=== PATIENT | female | born 1960 | race American Indian/Alaskan Native ===

== ENCOUNTER 2017-10-27 16:43 | Emergency (ER) | payer OTHER ==
--- NOTE | 2017-10-27 21:01 | Emergency Department Report ---
HPI - General Chief Complaint: Upper Respiratory Infection Time Seen by Provider: 10/27/17 20:52 - HPI HPI: Patient reports that she has cold symptoms. Denies any fever or chills. She said this is been ongoing. She also says she has pituitary tumor and she had craniotomy in the past and patient says that she is on hydrocortisone which her quantitative analyst is Dr. Prosper Munoz called into [facility] for her but they are on back order and unable to fill prescription. She says she has not taken this for about 5 days now. She has a history of endometriosis. Patient also had a history of blood clot in 2007 and she is not on any blood thinner but was on it in the past. Denies any swelling to her legs. She denies chest pain but reports shortness of breath. Denies any recent long distance for 3 hours or greater by car or airplane. Denies any hormonal therapy. Denies any nausea or vomiting. Patient said that she didn't have to get [facility] to give her the prescription back so she can go to another pharmacy to get medication filled. Patient does have a primary care physician. She says she's been taking over-the -counter cough and cold without any success. Patient denies any pain at present. 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 Endometriosis - Surgical History Past Surgical History?: Yes Additional Surgical History: crainotomy, brain tumor, endometrosis - Family History Family history: hypertension - Social History Smoking Status: Never Smoker Substance Use Type: None - Medications Home Medications: Home Medications Medication Instructions Recorded Confirmed Last Taken Type ALBUTEROL Inhaler [ProAir HFA 2 puff IH QID PRN #1 inhalation 10/28/17 Unknown Rx Inhaler] Amoxicillin/K Clav Tab [Augmentin 1 tab PO Q12HR 10 Days #20 tab 10/28/17 Unknown Rx 875 mg] Cetirizine HCl [ZyrTEC] 10 mg PO QDAY #10 capsule 10/28/17 Unknown Rx Prednisone [predniSONE 5 mg (6-Day 5 mg PO .TAPER 6 Days #1 tab.ds.pk 10/28/17 Unknown Rx Pack, 21 Tabs)] guaiFENesin/CODEINE [Robitussin AC] 10 ml PO Q12H PRN #100 ml 10/28/17 Unknown Rx ED Review of Systems ROS: Stated complaint: FLU LIKE SYMPTOMS Other details as noted in HPI Comment: All other systems reviewed and negative Constitutional: no symptoms reported Eyes: denies: eye pain, eye discharge, vision change ENT: congestion. denies: ear pain, throat pain, hearing loss, epistaxis Respiratory: cough, shortness of breath, SOB with exertion, wheezing. denies: orthopnea, SOB at rest, stridor Cardiovascular: denies: chest pain, palpitations, dyspnea on exertion, edema, syncope, paroxysmal nocturnal dyspnea Endocrine: denies: excessive sweating, flushing, intolerance to cold, intolerance to heat, increased hunger, increased thirst, increased urine, unexplained weight gain, unexplained weight loss Gastrointestinal: denies: abdominal pain, nausea, vomiting, diarrhea, constipation, hematemesis, melena, hematochezia Genitourinary: denies: dysuria, frequency, hematuria, discharge Musculoskeletal: denies: back pain, joint swelling, arthralgia, myalgia Skin: denies: rash Neurological: denies: headache, weakness, numbness, paresthesias, confusion, abnormal gait, vertigo Physical Exam - Physical Exam Vital Signs: Vital Signs 10/27/17 19:12 Temperature 97.6 F Pulse Rate 78 Blood Pressure 117/75 Vital Signs 10/27/17 10/27/17 10/27/17 19:12 21:04 22:02 Temperature 97.6 F 98.0 F Pulse Rate 78 83 86 Respiratory 21 16 Rate Blood Pressure 117/75 Blood Pressure 131/74 [Left] O2 Sat by Pulse 98 95 Oximetry General: This is a 57-year-old female well-nourished well-developed and in no acute distress. Physical Exam: Head: Normocephalic, atraumatic, no abrasion, no bruising and no contusion. Eyes: Biateral pupils equal and reactive to light, bilateral EOM intact.. Bilateral conjunctival and sclera without injection, normal accommodation. No nystagmus Mouth: Moist, no pharyngeal exudate or erythema. No peritonsillar abscesses. Uvula is midline and oral airways patent. Ears: Bilateral TM congested without erythema. Bilateral EAC without any redness swelling or drainage. No mastoid bone tenderness Nose: Bilateral nasal turbinates congested with erythema and clear drainage. Maxillary and frontal sinuses non- tender to palpate. Neck: Supple, No Cervical adenopathy, full range of motion and no C-spine tenderness. No swelling or tracheal deviation normal reflexes Cardiovascular: S1, S2. Regular rate and rhythm. No murmur. Capillary refill is less then 3 seconds. Lungs: Scattered wheezing to upper lung chung, no rhonchi or rales. No use of accessory muscles. Dry cough. No chest wall tenderness. No chest contusion. No bruising to chest. MSK: Strength 5/5 in all extremities. No joint deformity or crepitus. Normal inspection. Full range of motion to all extremities. No laceration, abrasion or ecchymotic area noted. Abdomen: Non-tender to palpate in all quadrants, no guarding or rebound tenderness, positive bowel sounds in all quadrants. No CVA tenderness. No hernia, bruit or mass. No rigidity or distention. Extremities: No clubbing, cyanosis or edema. +2 pulses. No neurovascular compromise. Negative Homans sign Skin: Clean, dry and intact. No rash or lesions. Neurological: GCS at 15, Pt is alert and oriented 3 speech is clear period. 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 Normal gait. Negative Romberg and no pronator drift. Normal Reflexes. No motor or sensory deficit Back: No vertebral tenderness, no paraspinal tenderness. Ambulates without any difficulties. Psych: Normal mood and behavior ED Course Vital Signs 10/27/17 19:12 Temperature 97.6 F Pulse Rate 78 Blood Pressure 117/75 Vital Signs 10/27/17 10/27/17 10/27/17 19:12 21:04 22:02 Temperature 97.6 F 98.0 F Pulse Rate 78 83 86 Respiratory 21 16 Rate Blood Pressure 117/75 Blood Pressure 131/74 [Left] O2 Sat by Pulse 98 95 Oximetry - Reevaluation(s) Reevaluation #1: 10/27/17 22:30 Patient given Xopenex 1.25 mg for wheeze in the upper lung chung which has revolves medication given. Vital signs are stable. Awaiting CTA and she'll of chest. D-dimer elevated, PT PTT stable, CBC stable and chemistry stable. Reevaluation #2: 10/28/17 00:32 Patient given Solu-Medrol 125 mg IV for bronchitis. ED Medical Decision Making - Lab Data Result diagrams: 10/27/17 21:05 10/27/17 21:05 Lab Results 10/27/17 10/27/17 10/27/17 Range/Units 21:05 21:05 21:05 WBC 4.6 (4.5-11.0) K/mm3 RBC 4.24 (3.65-5.03) M/mm3 Hgb 13.2 (10.1-14.3) gm/dl Hct 38.3 (30.3-42.9) % MCV 90 (79-97) fl MCH 31 (28-32) pg MCHC 35 H (30-34) % RDW 12.9 L (13.2-15.2) % Plt Count 201 (140-440) K/mm3 Lymph % (Auto) Barometers Calibrator Add Manual Diff Complete Total Counted 100 Seg Neutrophils % Barometers Calibrator Seg Neuts % (Manual) 38.0 L (40.0-70.0) % Band Neutrophils % 0 % Lymphocytes % (Manual) 54.0 H (13.4-35.0) % Reactive Lymphs % (Man) 0 % Monocytes % (Manual) 6.0 (0.0-7.3) % Eosinophils % (Manual) 2.0 (0.0-4.3) % Basophils % (Manual) 0 (0.0-1.8) % Metamyelocytes % 0 % Myelocytes % 0 % Promyelocytes % 0 % Blast Cells % 0 % Nucleated RBC % Not Reportable Seg Neutrophils # Man 1.7 L (1.8-7.7) K/mm3 Band Neutrophils # 0.0 K/mm3 Lymphocytes # (Manual) 2.5 (1.2-5.4) K/mm3 Abs React Lymphs (Man) 0.0 K/mm3 Monocytes # (Manual) 0.3 (0.0-0.8) K/mm3 Eosinophils # (Manual) 0.1 (0.0-0.4) K/mm3 Basophils # (Manual) 0.0 (0.0-0.1) K/mm3 Metamyelocytes # 0.0 K/mm3 Myelocytes # 0.0 K/mm3 Promyelocytes # 0.0 K/mm3 Blast Cells # 0.0 K/mm3 WBC Morphology Not Reportable Hypersegmented Neuts Not Reportable Hyposegmented Neuts Not Reportable Hypogranular Neuts Not Reportable Smudge Cells Not Reportable Toxic Granulation Not Reportable Toxic Vacuolation Not Reportable Dohle Bodies Not Reportable Pelger-Huet Anomaly Not Reportable Sharon Rods Not Reportable Platelet Estimate Appears normal Clumped Platelets Not Reportable Plt Clumps, EDTA Not Reportable Large Platelets Not Reportable Giant Platelets Not Reportable Platelet Satelliting Not Reportable Plt Morphology Comment Not Reportable RBC Morphology Not Reportable Dimorphic RBCs Not Reportable Polychromasia Not Reportable Hypochromasia Not Reportable Poikilocytosis Few Anisocytosis Few Microcytosis Not Reportable Macrocytosis Not Reportable Spherocytes Not Reportable Pappenheimer Bodies Not Reportable Sickle Cells Not Reportable Target Cells Not Reportable Tear Drop Cells Not Reportable Ovalocytes Not Reportable Helmet Cells Not Reportable Mcdonough-[place] Bodies Not Reportable Hol[place] Rings Not Reportable Bunnell Cells Not Reportable Bite Cells Not Reportable Crenated Cell Not Reportable Elliptocytes Not Reportable Acanthocytes (Spur) Not Reportable Rouleaux Not Reportable Hemoglobin C Crystals Not Reportable Schistocytes Not Reportable Malaria parasites Not Reportable Jamshid Bodies Not Reportable Hem Pathologist Commnt No PT 12.9 (12.2-14.9) Sec. INR 0.93 (0.87-1.13) APTT 36.0 (24.2-36.6) Sec. D-Dimer 533.62 H (0-234) ng/mlDDU Sodium 140 (137-145) mmol/L Potassium 4.1 (3.6-5.0) mmol/L Chloride 97.2 L (98-107) mmol/L Carbon Dioxide 23 (22-30) mmol/L Anion Gap 24 mmol/L BUN 12 (7-17) mg/dL Creatinine 1.2 (0.7-1.2) mg/dL Estimated GFR 56 ml/min BUN/Creatinine Ratio 10 % Glucose 86 (65-100) mg/dL Calcium 9.1 (8.4-10.2) mg/dL - Radiology Data Radiology results: report reviewed CT angiogram of the chest reveals no pulmonary embolism or acute cardiopulmonary process. She has some small caliber tortuous vessels that are seen extending throughout the liver without any discrete masses. Which cannot exclude cirrhosis. Upper abdomen is otherwise unremarkable. Physical exam reveals nontender abdomen without any organomegaly. Lung chung with minimal dependent atelectasis. Otherwise lungs are clear. No evidence of aneurysmal dilated patient or dissection. No evidence of pericardial effusion. Pulmonary vasculature is normal. - Medical Decision Making ED course: Sarah report that she has cold symptoms and has been out of her hydrocortisone for her due to her abnormality. She's been managed by quantitative analyst whose name is Dr. Prosper Munoz. She also has a primary care physician that she sees. CBC stable, PT PTT is stable, d-dimer elevated and BNP is stable. Patient had CT angiogram of the chest which reveals no pulmonary embolism and minimal dependent atelectasis in the lungs but otherwise the lung sounds are clear. No acute bony abnormalities. Please refer to radiology and left section for details. Patient was given Xopenex 1.25 mg nebulizer and upon reevaluation her lungs are better. She was given Solu- Medrol 125 mg IV. Patient vital signs are stable she is afebrile. I discussed patient that she has bronchitis, cough and I also explained laboratory results and CT findings with her she was understanding of diagnosis and treatment plan. I told her she needs to retrieve her prescription for hydrocortisone from [facility] pharmacy that has medication available or [facility] should be able to [facility] to see if they have medication and stop. I also discussed with her that she needed to talk to her quantitative analyst regarding in not able to take her medication for 5 days. I discussed with her treatment plan and she voiced understanding patient says she is feeling better and discharged from our emergency room a prescription for penicillin and codeine , Medrol Dosepak, Augmentin due to chronic medical problem which predisposes her to infection and albuterol HFA Critical care attestation.: If time is entered above; I have spent that time in minutes in the direct care of this critically ill patient, excluding procedure time. ED Disposition Clinical Impression: Bronchitis, Cough in adult patient Disposition: DC-01 TO HOME OR SELFCARE Is pt being admited?: No Does the pt Need Aspirin: No Condition: Stable Instructions: Acute Bronchitis (ED), Acute Cough (ED) Additional Instructions: Please take medication as prescribed. Call your quantitative analyst later on this morning to let her know that you're seen in emergency room and is being treated with steroid. Also the ear quantitative analyst know that you are not able to get your hydrocortisone from pharmacy and has not taken for 5 days Increase her fluid intake Take albuterol inhaler as prescribed Take antibiotic to prevent infection due to multiple comorbidities your risk for getting an infection Take cough medicine at night but these do not drive or operate heavy machinery while taking this medication because it can cause drowsiness Prescriptions: ALBUTEROL Inhaler [ProAir HFA Inhaler] 2 puff IH QID PRN #1 inhalation PRN Reason: COUGH/Wheezing Amoxicillin/K Clav Tab [Augmentin 875 mg] 1 tab PO Q12HR 10 Days #20 tab Cetirizine HCl [ZyrTEC] 10 mg PO QDAY #10 capsule guaiFENesin/CODEINE [Robitussin AC] 10 ml PO Q12H PRN #100 ml PRN Reason: Cough Prednisone [predniSONE 5 mg (6-Day Pack, 21 Tabs)] 5 mg PO .TAPER 6 Days #1 tab.ds.pk Referrals: PROSPER BROWN MD [Staff Physician] - 10/29/17 Forms: Accompanied Note, Work/School Release Form(ED)
[2017-10-27] MEDS ORDERED: XOPENEX IH ONE (21:06)
[2017-10-27 21:15] LABS: Hematocrit 38.3 % (30.3-42.9); Hemoglobin 13.2 gm/dl (10.1-14.3); Mean Corpuscular HGB Conc 35 % (30-34); Mean Corpuscular Hemoglobin 31 pg (28-32); Mean Corpuscular Volume 90 fl (79-97); Platelet Count 201 K/mm3 (140-440); Red Blood Count 4.24 M/mm3 (3.65-5.03); Red Cell Distribution Width 12.9 % (13.2-15.2)
[2017-10-27 21:25] LABS: INR 0.93 (0.87-1.13)
[2017-10-27 22:02] LABS: Calcium 9.1 mg/dL (8.4-10.2)
[2017-10-27 22:03] VITALS: BP 131/74
[2017-10-27 22:12] LABS: Basophils % (Manual) 0 % (0.0-1.8); Total Cells Counted 100
[2017-10-27 22:13] LABS: Anisocytosis Few; Poikilocytosis Few
--- NOTE | 2017-10-27 23:49 | Cat Scan Report ---
FINAL REPORT PROCEDURE: CT ANGIO CHEST TECHNIQUE: Computerized tomographic angiography of the chest was performed during the IV injection of iodinated nonionic contrast including image processing. The image data was postprocessed using 2-dimensional multiplanar reformatted (MPR) and 3-dimensional (MIP and/or volume rendered) techniques. HISTORY: sob with h/o PE 2007 COMPARISON: No prior studies are available for comparison. FINDINGS: Pulmonary outflow tract, right and left main pulmonary arteries and their proximal branches: Clear, no filling defects seen to suggest pulmonary embolus. Pericardium: No evidence of pericardial effusion. Thoracic aorta: No evidence of aneurysmal dilatation or dissection. Coronary arteries: Are unremarkable. Mediastinum and hilar regions: Nonspecific subcentimeter lymph nodes are visualized. No pathologically enlarged lymph nodes or masses are identified. Lung Galvin: There is minimal dependent atelectasis. Lungs otherwise are clear. Upper abdomen: There are multiple small tortuous vessels extending throughout the liver. I cannot exclude early cirrhosis. The upper abdomen is otherwise unremarkable. Other: No acute bony abnormalities are identified. IMPRESSION: No evidence of pulmonary embolus. Multiple small caliber tortuous vessels are seen extending throughout the liver without discrete masses. I cannot exclude early cirrhosis. Upper abdomen is otherwise unremarkable.
== END 2017-10-28 01:03 | disposition home or self-care (01) ==
LOC: ED 16:43
DX: J40 Bronchitis, not specified as acute or chronic (principal)
CPT/HCPCS: 36415; 71275; 80048; 85007; 85025; 85379; 85610; 85730; 96374; 99284; J2930; Q9967